=== PATIENT | male | born 1960 | race African-American/Black ===

== ENCOUNTER 2023-11-06 20:42 | Inpatient (IN) | payer MEDICARE, OTHER ==
[~2023-11-06] VITALS: Ht 172.7 cm; Wt 77.3 kg
[2023-11-06 21:00] LABS: BASOPHILS # (AUTO) 0.09 K/uL (0.00-0.20); BASOPHILS % (AUTO) 0.7 % (0.0-5.0); EOSINOPHILS # (AUTO) 0.13 K/uL (0.00-0.70); EOSINOPHILS % (AUTO) 1.1 % (0.0-8.0); HEMATOCRIT 49.7 % (42-54); IMMATURE GRANULOCYTE ABSOLUTE 0.05 K/uL (0-1); LYMPHOCYTES # (AUTO) 1.4 K/uL (1.0-4.8); LYMPHOCYTES % (AUTO) 11.6 % (21.0-51.0); MEAN CORPUSCULAR HEMOGLOBIN 31.9 pg (27.0-33.0); MEAN CORPUSCULAR VOLUME 93.8 fL (79-99); MONOCYTES # (AUTO) 0.8 K/uL (0.1-1.0); NEUTROPHILS # (AUTO) 9.5 K/uL (1.8-7.7); NEUTROPHILS % (AUTO) 79.2 % (40.0-77.0); PLATELET COUNT (AUTO) 290 K/uL (130-400); RED CELL DISTRIBUTION WIDTH 14.3 % (11.0-15.5)
[2023-11-06 21:09] LABS: CREATININE 1.4 mg/dL (0.5-1.5); POTASSIUM 3.1 mmol/L (3.5-5.1)
[2023-11-06] MEDS: NICARDIPINE 25MG INJ IV ONE (21:10)
[2023-11-06] MEDS: NICARDIPINE 25MG INJ 25 MG in 0.9% NACL 250ML 240 ML IV SCH (21:10)
[2023-11-06 21:23] LABS: ALBUMIN 4.3 g/dL (3.5-5.0); BILIRUBIN,TOTAL 0.8 mg/dL (0.2-1.0); TOTAL PROTEIN, SERUM 8.2 g/dL (6.0-8.3)
[2023-11-06 22:03] LABS: ALCOHOL, BLOOD < 3 mg/dL (0-10)
[2023-11-06 22:07] LABS: APPEARANCE,URINE CLOUDY (CLEAR); BILIRUBIN,URINE NEGATIVE (NEGATIVE); COLOR,URINE LIGHT-YELLOW (YELLOW); GLUCOSE, URINE (UA) NEGATIVE (NEGATIVE); KETONES,URINE 10 mg/dL (NEGATIVE); LEUKOCYTE ESTERASE ,URINE NEGATIVE Leu/uL (NEGATIVE); NITRATE,URINE NEGATIVE (NEGATIVE); OCCULT BLOOD,URINE NEGATIVE (NEGATIVE); PROTEIN,URINE 70 mg/dL (NEGATIVE); UROBILINOGEN,URINE 0.2 mg/dL (0.2-1.0)
[2023-11-06 22:09] LABS: ADD UA MICROSCOPIC YES
[2023-11-06 22:10] LABS: BACTERIA,URINE RARE /HPF (None Seen); MUCUS,URINE RARE LPF (None Seen); UNCLASSIFIED CRYSTAL 1 /HPF (None Seen); YEAST,URINE BUDDING FEW /HPF (None Seen)
[2023-11-06 22:14] LABS: AMPHET/METH SCREEN,URINE NEGATIVE (NEGATIVE); BARBITURATE SCREEN, URINE NEGATIVE (NEGATIVE); BENZODIAZEPINES SCREEN,URINE NEGATIVE (NEGATIVE); CANNABINOID SCREEN,URINE POSITIVE (NEGATIVE); COCAINE SCREEN,URINE NEGATIVE (NEGATIVE); OPIATE SCREEN,URINE NEGATIVE (NEGATIVE); PHENCYCLIDINE SCREEN,URINE NEGATIVE (NEGATIVE)
[2023-11-06] MEDS: ACETAMINOPHEN 500 MG TABLET PO ONE (22:51)
[2023-11-07] MEDS ORDERED: MAGNESIUM 2GM PREMIX 50ML 50 ML IV PRN (01:00)
[2023-11-07] MEDS ORDERED: POTASSIUM CHLORIDE 20MEQ/100ML 100 ML IV PRN (01:00)
[2023-11-07] MEDS ORDERED: CEFTRIAXONE 1G VIAL IVPB SCH (01:00)
[2023-11-07] MEDS ORDERED: POTASSIUM CHLORIDE 10% ELIXIR 20 MEQ/15 ML UDCUP PO PRN (01:00)
[2023-11-07] MEDS: KCL 20 MEQ ERTAB PO PRN (01:22)
[2023-11-07] MEDS: PHARMACY COMMUNICATION MISC SCH (01:30)
[2023-11-07] MEDS: NICARDIPINE 25MG INJ IV ONE ×2 (01:31→03:49)
[2023-11-07] MEDS: LEVOFLOXACIN 500 MG/D5W 100 ML 100 ML IV SCH (03:06)
[2023-11-07] MEDS: METOPROLOL TARTRATE 50 MG TAB PO SCH ×2 (03:54→15:25)
[2023-11-07 05:37] LABS: SARS-CoV-2, RNA, NAAT NEGATIVE SARS CoV-2 (NEGATIVE)
[2023-11-07 05:42] LABS: INFLUENZA TYPE A Negative For Type A (NEGATIVE); INFLUENZA TYPE B Negative For Type B (NEGATIVE)
[2023-11-07 07:02] LABS: BASOPHILS # (AUTO) 0.07 K/uL (0.00-0.20); BASOPHILS % (AUTO) 0.6 % (0.0-5.0); EOSINOPHILS # (AUTO) 0.11 K/uL (0.00-0.70); EOSINOPHILS % (AUTO) 0.9 % (0.0-8.0); HEMATOCRIT 45.9 % (42-54); LYMPHOCYTES # (AUTO) 1.2 K/uL (1.0-4.8); LYMPHOCYTES % (AUTO) 9.5 % (21.0-51.0); MEAN CORPUSCULAR HEMOGLOBIN 31.1 pg (27.0-33.0); MEAN CORPUSCULAR VOLUME 91.6 fL (79-99); MONOCYTES # (AUTO) 0.7 K/uL (0.1-1.0); MONOCYTES % (AUTO) 5.8 % (3.0-13.0); NEUTROPHILS # (AUTO) 10.2 K/uL (1.8-7.7); NEUTROPHILS % (AUTO) 82.4 % (40.0-77.0); PLATELET COUNT (AUTO) 260 K/uL (130-400); RED BLOOD CELL COUNT(AUTO) 5.01 MIL/uL (4.50-6.20); RED CELL DISTRIBUTION WIDTH 14.4 % (11.0-15.5); WHITE BLOOD COUNT (AUTO) 12.3 K/uL (4.8-10.8)
[2023-11-07 07:11] LABS: HEMOGLOBIN A1C 5.8 % (4.0-6.0)
[2023-11-07 07:17] LABS: ALBUMIN 3.5 g/dL (3.5-5.0); BILIRUBIN,TOTAL 0.8 mg/dL (0.2-1.0); CREATININE 1.2 mg/dL (0.5-1.5); MAGNESIUM 1.9 mg/dL (1.80-2.40); POTASSIUM 3.8 mmol/L (3.5-5.1); TOTAL PROTEIN, SERUM 7.1 g/dL (6.0-8.3)
[2023-11-07] MEDS: LACTATED RINGERS 1000ML 1,000 ML IV SCH (10:33)
[2023-11-07] MEDS: ENOXAPARIN SODIUM 40 MG/0.4 ML SYRINGE SQ SCH (10:34)
[2023-11-07] MEDS: ACETAMINOPHEN 325 MG TAB PO PRN (10:35)
[2023-11-07] MEDS: FAMOTIDINE 20MG TAB PO SCH (10:36)
[2023-11-07] MEDS: METOPROLOL TARTRATE 1 MG/ML 5ML VIAL IV PRN (18:37)
[2023-11-07] MEDS: HYDRALAZINE 20MG/ML VIAL IV PRN (20:42)
[2023-11-07] MEDS: HYDRALAZINE 20MG/ML VIAL ONE (20:42)
[2023-11-07 21:52] VITALS: BP 171/98; PULSE 67; RESP 19
[2023-11-07 23:36] VITALS: BP 164/99; PULSE 71; RESP 20
[2023-11-07 23:58] VITALS: O2SAT 97
[2023-11-08] VITALS (9 sets, daily range): BP systolic 156–175; BP diastolic 97–110; PULSE 60–80; RESP 16–20; O2SAT 97
[2023-11-08 04:00] LABS: BASOPHILS # (AUTO) 0.07 K/uL (0.00-0.20); BASOPHILS % (AUTO) 0.7 % (0.0-5.0); EOSINOPHILS # (AUTO) 0.12 K/uL (0.00-0.70); EOSINOPHILS % (AUTO) 1.2 % (0.0-8.0); HEMATOCRIT 44.9 % (42-54); IMMATURE GRANULOCYTE ABSOLUTE 0.05 K/uL (0-1); LYMPHOCYTES # (AUTO) 1.5 K/uL (1.0-4.8); LYMPHOCYTES % (AUTO) 15.3 % (21.0-51.0); MEAN CORPUSCULAR HEMOGLOBIN 31.3 pg (27.0-33.0); MEAN CORPUSCULAR HGB CONC 33.9 g/dL (32.0-36.0); MEAN CORPUSCULAR VOLUME 92.6 fL (79-99); MONOCYTES # (AUTO) 0.8 K/uL (0.1-1.0); NEUTROPHILS # (AUTO) 7.5 K/uL (1.8-7.7); NEUTROPHILS % (AUTO) 74.3 % (40.0-77.0); PLATELET COUNT (AUTO) 255 K/uL (130-400); RED BLOOD CELL COUNT(AUTO) 4.85 MIL/uL (4.50-6.20); RED CELL DISTRIBUTION WIDTH 14.2 % (11.0-15.5); WHITE BLOOD COUNT (AUTO) 10.1 K/uL (4.8-10.8)
[2023-11-08 04:23] LABS: POTASSIUM 3.2 mmol/L (3.5-5.1)
[2023-11-08] MEDS: ONDANSETRON 4MG INJ IV PRN (08:38)
[2023-11-08] MEDS ORDERED: METOCLOPRAMIDE 5 MG TABLET PO PRN (10:30)
[2023-11-08] MEDS: ALPRAZOLAM 0.25 MG TABLET PO ONE (12:17)
[2023-11-08] MEDS: AMLODIPINE 5 MG TAB PO ONE (12:17)
[2023-11-08] MEDS ORDERED: VANCOMYCIN PROTOCOL PER PHARMACY IV SCH (12:30)
[2023-11-08] MEDS: LISINOPRIL 20 MG TABLET PO ONE (12:31)
[2023-11-08] MEDS: HYDRALAZINE 20MG/ML VIAL IV PRN (17:18)
[2023-11-08] MEDS: METOPROLOL TARTRATE 50 MG TAB PO SCH (19:54)
[2023-11-09] VITALS: BP 186/93; PULSE 67; RESP 16
[2023-11-09] MEDS: ACETAMINOPHEN 325 MG TAB PO PRN (03:29)
[2023-11-09 04:00] VITALS: BP 178/110; PULSE 75; RESP 20
[2023-11-09 04:11] LABS: HEMATOCRIT 47.3 % (42-54); MEAN CORPUSCULAR HEMOGLOBIN 31.7 pg (27.0-33.0); MEAN CORPUSCULAR HGB CONC 34.2 g/dL (32.0-36.0); MEAN CORPUSCULAR VOLUME 92.6 fL (79-99); RED BLOOD CELL COUNT(AUTO) 5.11 MIL/uL (4.50-6.20); RED CELL DISTRIBUTION WIDTH 14.5 % (11.0-15.5); WHITE BLOOD COUNT (AUTO) 9.7 K/uL (4.8-10.8)
[2023-11-09 04:23] LABS: CREATININE 1.2 mg/dL (0.5-1.5); POTASSIUM 3.6 mmol/L (3.5-5.1)
[2023-11-09 07:33] VITALS: BP 148/84; PULSE 80; RESP 16
[2023-11-09] MEDS: AMLODIPINE 5 MG TAB PO SCH (08:01)
[2023-11-09] MEDS: LISINOPRIL 20 MG TABLET PO SCH (08:02)
[2023-11-09] MEDS ORDERED: LISINOPRIL 5 MG TABLET PO ONE (09:00)
[2023-11-09 10:09] VITALS: O2SAT 94
[2023-11-09] MEDS ORDERED: METO200T49 PO (10:27)
[2023-11-09] MEDS ORDERED: LISI20TA24 PO (10:27)
[2023-11-09] MEDS ORDERED: AMLO-258 PO (10:27)
[2023-11-09 11:19] VITALS: BP 179/106; PULSE 66; RESP 17
== END 2023-11-09 12:00 | disposition home or self-care (01) | DRG 305 ==
LOC: EDH 20:42 → EDHIP 20:43 → UNDOADMIN 20:43 → EDHIP 11-07 00:55 → 4AH 11-07 19:12
PROVIDERS: ADMIT Internal Medicine; ATTEND Internal Medicine
DX: I16.1 Hypertensive emergency (principal); R78.81 Bacteremia; Z59.00 Homelessness unspecified; R51.9 Headache, unspecified; D72.829 Elevated white blood cell count, unspecified; B96.89 Other specified bacterial agents as the cause of diseases classified elsewhere; E87.6 Hypokalemia; F17.210 Nicotine dependence, cigarettes, uncomplicated; I11.9 Hypertensive heart disease without heart failure; Z88.0 Allergy status to penicillin; Z85.038 Personal history of other malignant neoplasm of large intestine; Z93.3 Colostomy status
CPT/HCPCS: 36415; 70450; 71250; 72125; 80048; 80053; 80305; 81001; 82948; 83036; 83605; 83735; 84145; 84443; 84484; 85025; 85027; 87040; 87077; 87088; 87186; 87635; 87804; 93005; G0378; J0360; J1650; J1956; J2405; J3490; J7050; J7120